=== PATIENT | male | born 1985 | race Caucasian/White ===

== ENCOUNTER 2022-03-05 17:24 | Emergency (ER) | payer OTHER ==
[~2022-03-05] VITALS: Ht 172.7 cm; Wt 83.5 kg
== END 2022-03-05 22:24 | disposition home or self-care (01) ==
LOC: ED 17:24
DX: S01.112A Laceration without foreign body of left eyelid and periocular area, initial encounter (principal); W50.0XXA Accidental hit or strike by another person, initial encounter; Z91.030 Bee allergy status
CPT/HCPCS: 12013; 99283-25